=== PATIENT | male | born 1945 | race Caucasian/White ===

== ENCOUNTER 2016-12-18 05:57 | Day surgery (SDC) | payer MEDICARE, BC ==
[2016-12-18] VITALS (13 sets, daily range): BP systolic 118–140; BP diastolic 68–81
[~2016-12-18] VITALS: Ht 185.4 cm; Wt 88.5 kg
[~2016-12-18 05:57] MED LIST: AMIODARONE HCL100 MG ORAL; CARDIZEM CD120 MG ORAL; CATAPRES0.1 MG ORAL; DYAZIDE1 CAP ORAL; FERROUS SULFAT325 MG ORAL; FLOVENT2 PUFFS INH; GEMFIBROZIL600 MG ORAL; HYDROXYZINE HCL10 M1 PO; LEXAPRO10 MG ORAL; MONTELUKAST SOD10 MG ORAL; OMEPRAZOLE10 M1 ORAL; PROAIR HFA8.5 GM INH; TAMSULOSIN HCL0.4 MG ORAL; XARELTO10 MG ORAL; ZYRTEC10 MG ORAL
[2016-12-18] MEDS ORDERED: Proparacaine 0.5% Opth Soln 15ml RIGHT EYE ONE (06:00)
[2016-12-18] MEDS ORDERED: Cyclopentolate 1% Opth Sol 2ml ONE (06:10)
[2016-12-18] MEDS ORDERED: Tropicamide 1% Opth 15ml Soln ONE (06:11)
[2016-12-18] MEDS ORDERED: Phenylephrine 2.5% Op 2ml Soln ONE (06:11)
[2016-12-18] MEDS ORDERED: Proparacaine 0.5% Opth Soln 15ml ONE (06:11)
[2016-12-18] MEDS: Cyclopentolate 1% Opth Sol 2ml RIGHT EYE SCH ×3 (06:26→06:49)
[2016-12-18] MEDS: Tropicamide 1% Opth 15ml Soln RIGHT EYE SCH ×3 (06:26→06:49)
[2016-12-18] MEDS: Phenylephrine 2.5% Op 2ml Soln RIGHT EYE SCH ×3 (06:26→06:49)
[2016-12-18] MEDS ORDERED: PROCARDIA XL30 MG ORAL (06:43)
[2016-12-18] MEDS ORDERED: Maxitrol Opth Oint 3.5gm ONE (06:58)
[2016-12-18] MEDS ORDERED: BSS 500ml btl ONE (06:58)
[2016-12-18] MEDS ORDERED: Kenalog-40 1ml Vial ONE (06:58)
[2016-12-18] MEDS ORDERED: Pred Forte 1% Opth Susp 1ml ONE (06:58)
[2016-12-18] MEDS ORDERED: Dexamethasone 4mg/ml vial ONE ×2 (06:59→07:30)
[2016-12-18] MEDS ORDERED: Tetracaine 0.5% Opth 4ml Soln ONE (07:00)
[2016-12-18] MEDS ORDERED: Povidone-Iodine 5% opth solution ONE (07:00)
[2016-12-18] MEDS ORDERED: EPINEPHrine 1mg/1ml Amp ONE (07:00)
[2016-12-18] MEDS ORDERED: Bupivacaine 0.75% 30ml vial INJ ONE (07:01)
[2016-12-18] MEDS ORDERED: BSS 15ml BTL ONE (07:01)
[2016-12-18] MEDS ORDERED: Lidocaine 2% MPF 5ml Vial INJ ONE (07:01)
[2016-12-18] MEDS ORDERED: Goniosol 2.5% Opth Soln - 15ml ONE (07:01)
[2016-12-18] MEDS ORDERED: Sodium Hyaluronate 10 mg/ml 0.85ml ONE (07:02)
--- NOTE | 2016-12-18 07:17 | Anethesia Preoperative Eval ---
Anesthesia Pre-op PMH/ROS General Date of Evaluation: Dec 18, 2016 Anesthesiologist: Juarez ASA Score: ASA 3 Mallampati Score Class I : Soft palate, uvula, fauces, pillars visible Class II: Soft palate, uvula, fauces visible Class III: Soft palate, base of uvula visible Class IV: Only hard plate visible Mallampati Classification: Class II Surgeon: Antonio Diagnosis: Right eye retinal detachment Surgical Procedure: Right eye vitrectomy Anesthesia History: none Family History: no anesthesia problems Allergies: Coded Allergies: Cantaloupe (Verified Allergy, Intermediate, 12/17/16) itching on the roof of the mouth DOXYCYCLINE (Verified Allergy, Unknown, 12/17/16) ERYTHROMYCIN BASE (Verified Allergy, Unknown, 12/17/16) Uncoded Allergies: honeydew (Allergy, Intermediate, 12/17/16) itching on the roof of the mouth Medications: see eMAR Past Medical History Cardiovascular: Reports: HTN, arrhythmia - afib, other - HLD, Denies: CAD, [place], valve dz Pulmonary: Reports: asthma - controlled, Denies: COPD, APRYL, other Gastrointestinal/Genitourinary: Reports: GERD, Denies: CRI, ESRD, other Neurologic/Psychiatric: Reports: depression/anxiety, Denies: dementia, CVA, TIA, other Endocrine: Denies: DM, hypothyroidism, steroids, other HEENT: Denies: cataract (L), cataract (R), glaucoma, [place] (L), [place] (R), other Hematology/Immune: Denies: anemia, DVT, bleeding disorder, other Musculoskeletal/Integumentary: Reports: OA, other - cervical stenosis, Denies: RA, DJD, DDD, edema PSxH Narrative: T&A, cataract extraction bilateral, vasectomy Anesthesia Pre-op Phys. Exam Physician Exam Last Vital Signs Date Time Temp Pulse Resp B/P (MAP) Pulse Ox O2 Delivery O2 Flow Rate FiO2 12/18/16 06:30 98.0 49 18 140/77 97 Room Air Constitutional: NAD Cardiovascular: other - cy Respiratory: CTA Airway Exam Mallampati Score: Class II MO: full ROM: full Teeth: intact Anesthesia Pre-op A/P Labs see chart Studies Pre-op Studies: EKG - sb Risk Assessment & Plan Assessment: ASA II Plan: GA Status Change Before Surgery: No Pre-Antibiotics Drug: N/A TERESA GRANGER M.D. Dec 18, 2016 07:17
[2016-12-18] MEDS ORDERED: fentaNYL 100 mcg/2 mL IV ONE ×2 (07:30)
[2016-12-18] MEDS ORDERED: Glycopyrrolate 0.2mg/ml 1ml Vial ONE (07:30)
[2016-12-18] MEDS ORDERED: NS Irrig 1000ml ONE ×2 (07:30)
[2016-12-18] MEDS ORDERED: Meperidine 25mg/0.5ml Inj (FOR RIGORS ONLY) ONE (07:30)
[2016-12-18] MEDS ORDERED: LR 1000ml ONE (07:30)
[2016-12-18] MEDS ORDERED: Morphine Sulfate 10mg/ml Inj ONE (07:30)
[2016-12-18] MEDS ORDERED: Zemuron 50mg/5ml Inj IV ONE ×2 (07:30)
[2016-12-18] MEDS ORDERED: Lidocaine 1% MPF 10mg/ml 5ml ONE (07:30)
[2016-12-18] MEDS ORDERED: Sterile Water Irrig 1000ml IRRIG ONE ×2 (07:30)
[2016-12-18] MEDS ORDERED: Midazolam 2mg/2ml Inj ONE ×2 (07:30)
[2016-12-18] MEDS ORDERED: Propofol 200mg/20ml IV ONE ×2 (07:30)
--- NOTE | 2016-12-18 07:42 | Pre-Procedure Note/Attestation ---
Pre-Procedure Note/Attestation Complete Prior to Procedure Planned Procedure: right Procedure Narrative: ERM and rotated IOL OD Indications for Procedure Pre-Operative Diagnosis: ERM and rotated IOL OD Attestation I attest that I discussed the nature of the procedure; its benefits; risks and complications; and alternatives (and the risks and benefits of such alternatives ), prior to the procedure, with the patient (or the patient's legal brand representative). I attest that, if there was a reasonable possibility of needing a blood transfusion, the patient (or the patient's legal brand representative) was given the [facility] standardized written summary, pursuant to the Jacky Jayda Blood Safety Act ([place] Health and Safety Code # 1645, as amended). I attest that I re-evaluated the patient just prior to the surgery and that there has been no change in the patient's H&P, except as documented below: Michel Alvarez M.D. Dec 18, 2016 07:42
--- NOTE | 2016-12-18 07:43 | Brief Operative Note ---
Immediate Post Operative Note Operative Note Pre-op Diagnosis: ERM and rotated IOL OD Procedure: PPV/ILMP/IOL repositioning/AFE OD Post-op Diagnosis: Same Post-op Diagnosis: same as pre-op Surgeon: Antonio Anesthesia: general Specimen: none Complications: none Condition: stable Fluids: minimal Estimated Blood Loss: minimal Drains: none Implant(s) used?: Michel Egan M.D. Dec 18, 2016 07:43
--- NOTE | 2016-12-18 07:44 | Operative Note - PDOC ---
Operative Note Operative Note Chief Complaint: Decreased vision OD Pre-op Diagnosis: ERM and rotated IOL OD Procedure: PPV/ILMP/IOL repositioning/AFE OD Post-op Diagnosis: Same Post-op Diagnosis: same as pre-op Surgeon: Antonio Anesthesia: general Specimen: none Complications: none Condition: stable Estimated Blood Loss: minimal Drains: none Implant(s) used?: No Indications for Procedure Patient has decreased vision due to ERM and rotated IOL OD. Description of Procedure Operative Report Location[place] [facility] [place] Diagnosis: Visually significant macular pucker and rotated IOL Right EYE Post-operative Diagnosis: Same Procedure: Pars plana vitrectomy, membrane peel, internal limiting membrane peel, IOL repositioning, air-fluid exchange, Right EYE Surgeon: Michel Alvarez M.D. Anesthesia: GA Complications: None Indications for the procedure: The patient has vision loss due to macular pucker and presents today for surgery. After review of the risks, benefits, alternative and the patient signed informed consent into the medical chart. Procedure performed: The patient was met in the pre-op area where informed consent was reviewed. The operative eye was verified, marked and dilated. The patient was transferred to the operative suite, where cardiopulmonary monitoring was established and general anesthetic was administered without complications. The eye was prepped and draped in sterile ophthalmic fashion. Under microscope visualization the 23 gauge infusion line was placed inferotemporally. After visualization of the tip in the vitreous cavity, the infusion line was turned on. The superotemporal and superonasal cannulas were placed. Under BIOM visualization, peripheral and core vitrectomy was performed.. ICG was used to stain the posterior pole. Under contact lens visualization, the ERM /ILM was peeled with forceps. Further peripheral vitrectomy was performed. Inspection of the peripheral revealed no iatrogenic breaks. The AC IOL was rotated 90 degrees with healon in the AC and using a hook. Air-fluid exchange was performed. The cannulas were removed without leakage from the sclerotomies. The infusion line was removed. The eye maintained normal intraocular pressure. Subconjunctival vancomycin and dexamethasone were administered. The lid speculum was removed. The eye was cleaned of prep and drape. Atropine drop and Maxitrol ointment was applied. A pressure patch was placed. The patient was turned over to the anesthesia team and transferred in stable condition to the PACU. Michel Alvarez M.D. Dec 18, 2016 07:44
[2016-12-18] MEDS ORDERED: LR 1000ml 1,000 ML IVLG SCH (07:58)
[2016-12-18] MEDS ORDERED: fentaNYL 100 mcg/2 mL IV PRN (08:00)
[2016-12-18] MEDS ORDERED: Midazolam 2mg/2ml Inj IVP PRN (08:00)
[2016-12-18] MEDS ORDERED: DiphenhydrAMINE 50mg/ml Inj IVP PRN (08:00)
[2016-12-18] MEDS ORDERED: Indocyanine Green 25mg Inj INJ ONE (08:00)
--- NOTE | 2016-12-18 08:00 | Immediate Post-Op Evaluation ---
Immediate Post-Op Evalulation Immediate Post-Op Evalulation Procedure: Right eye vitrectomy Date of Evaluation: Dec 18, 2016 Time of Evaluation: 08:45 IV Fluids: 600 Blood Products: 0 Estimated Blood Loss: min Urinary Output: 0 Blood Pressure Systolic: 119 Blood Pressure Diastolic: 69 Pulse Rate: 49 Respiratory Rate: 15 O2 Sat by Pulse Oximetry: 100 Temperature (Fahrenheit): 97 Pain Score (1-10): 0 Nausea: No Vomiting: No Complications 0 Patient Status: awake, reacts, patent, none Hydration Status: adequate Drug: N/A TERESA GRANGER M.D. Dec 18, 2016 08:00
--- NOTE | 2016-12-18 08:00 | 48 Hour Post Anesthesia Eval ---
Post Anesthesia Evaluation Procedure: Right eye vitrectomy Date of Evaluation: Dec 18, 2016 Airway: patent Nausea: No Vomiting: No Pain Intensity: 0 Hydration Status: adequate Cardiopulmonary Status: at baseline Mental Status/LOC: patient returned to baseline Post-Anesthesia Complications: 0 Follow-up care needed: ready to discharge TERESA GRANGER M.D. Dec 18, 2016 08:00
== END 2016-12-18 11:00 | disposition home or self-care (01) ==
LOC: SUR 05:57
DX: H35.371 Puckering of macula, right eye (principal); H33.21 Serous retinal detachment, right eye; Z88.8 Allergy status to other drugs, medicaments and biological substances; I10 Essential (primary) hypertension; E78.5 Hyperlipidemia, unspecified; J45.909 Unspecified asthma, uncomplicated; K21.9 Gastro-esophageal reflux disease without esophagitis; F32.9 Major depressive disorder, single episode, unspecified; F41.9 Anxiety disorder, unspecified; M48.02 Spinal stenosis, cervical region; R00.1 Bradycardia, unspecified
CPT/HCPCS: 67041; J1100; J2250; J2704; J3010; J3370; J3490; J7120; 94003; 94150; J2180